=== PATIENT | male | born 1970 | race Caucasian/White ===

== ENCOUNTER → 2024-08-31 | Day surgery (SDC) | payer MEDICAID ==
[~2024-08-31] VITALS: Ht 152.4 cm; Wt 59.0 kg
[~2024-08-31] MED LIST: ALLO300T2 PO; ASPI-1497 PO; ATOR40TA70 PO; BALANCED SALT IRRIG SOLN COMB2 500ML OP NR; CHOL200026 PO; CYCLOPENTOLATE HCL 1% OPHTH DROPS 2ML LEFTEYE ONE; DAPA5TAB PO; DULA0.75 SQ; FINE10TA PO; HYDROMORPHONE HCL/PF 1MG/ML INJ IV PRN; LABETALOL 5MG/ML 4ML INJ IV PRN; MEPERIDINE HCL/PF 25MG/ML CPJ IV PRN; METF-414 PO; OMEP20CA14 PO; ONDANSETRON HCL 4MG/2ML INJ IV PRN; PHENYLEPHRINE HCL 10% OPHTH DROPS 5ML LEFTEYE ONE; SODIUM CHLORIDE 0.9% 1,000 ML IV SCH; TERB250T88 PO; TROPICAMIDE 1% OPHTH DROPS 15ML LEFTEYE ONE; [UNRECOGNIZED DRUG - CODE] PO
[2024-08-31 10:18] LABS: POTASSIUM 5.9 mEq/L (3.5-5.1)
[2024-08-31 10:20] LABS: CALCIUM 9.4 mg/dL (8.7-10.4)
[2024-08-31 10:25] LABS: CREATININE 2.1 mg/dL (0.6-1.3)
== END | disposition home or self-care (01) ==
LOC: OR 09:38
PROVIDERS: ATTEND Ophthalmology
DX: H25.89 Other age-related cataract (principal); Z53.8 Procedure and treatment not carried out for other reasons; Z79.899 Other long term (current) drug therapy; Z98.890 Other specified postprocedural states; Z79.82 Long term (current) use of aspirin
CPT/HCPCS: 36415; 80048